=== PATIENT | female | born 1930 | race Caucasian/White ===

== ENCOUNTER 2017-12-18 15:08 | Inpatient (IN) | payer MEDICARE, OTHER ==
[~2017-12-18] VITALS: Ht 170.2 cm; Wt 63.0 kg
[2017-12-18] MEDS ORDERED: LIPITOR10 MG PO (15:38)
[2017-12-18] MEDS ORDERED: VITAMIN D1000 UNI1 PO (15:39)
[2017-12-18] MEDS ORDERED: CALCIUM 600 +1 EAC1 PO (15:39)
[2017-12-18] MEDS ORDERED: PROTONIX40 M1 PO (15:40)
[2017-12-18] MEDS ORDERED: MIRALAX17 GM PO (15:42)
[2017-12-18] MEDS ORDERED: ASPIRIN81 M2 PO (15:43)
[2017-12-18] MEDS ORDERED: HYDROCODONE-AP1 EAC6 PO (15:44)
[2017-12-18] MEDS ORDERED: LACTULOSE20 GM/30 M PO (16:29)
[2017-12-18 18:28] VITALS: BP 141/54
--- NOTE | 2017-12-18 18:58 | NUR ---
87 YEAR OLD FEMALE ADMITTED TO ROOM 226 WITH TRAUMA WITH MULTIPLE FRACTURES SECONDARY TO A RECENT FALL. PT WAS ASSISTED FROM WC TO BED WITH MOD ASSIST, WILL NEED A PLATFORM WALKER FOR THERAPY AND TRANSFERS. PT IS A/O X4, VERY PLEASANT AND STATES SHE'S REALLY GLAD TO BE HERE. ADMISSION HISTORY AND ASSESSMENT COMPLETED DOCUMENTED. REHAB PLAN OF CARE AND TEAM MEETINGS EXPLAINED, PT VOICES UNDERSTANDING. FALL PRECAUTIONS AND HOURLY ROUNDING IMPLEMENTED.
[2017-12-18 19:55] VITALS: BP 133/54
--- NOTE | 2017-12-19 03:14 | NUR ---
ASSUMED CARE AT 1930. ADMITTED EARLIER TO ROOM 326 FROM [facility]. NWB TO LT WRIST, WBAT TO RLE. WEARING SPICA SPLINT TO LEFT WRIST, KNEE IMMOBILIZER TO RLE. HAS PREVENTATIVE MIPILEX TO BILAT ANKLES. HAS BRUISING ON LT ARM, RT SHOULDER. HAS SCABS UNDER LEFT EYE, TO LT SHOULDER AND CHIN. HAS OPEN AREA TO RT BUTTOCK, CLEANSED AND MOISTURE BARRIER APPLIED PER REQUEST, COVERED WITH MIPILEX. PICTURES TAKEN. UP WITH MOD LIFTING ASSIST, GAIT BELT. STAND PIVOT. USING [facility] TONIGHT. POSITIONED ON LT SIDE. HAD LARGE BM AT 2230 PER [facility], AND ANOTHER AT 0300 NOW PASSING GAS. HAS HX OF ENEMA AT [facility], AND IS ON LACTULOSE BID UNTIL GOOD BM. MEDICATED FOR PAIN WITH GOOD RESULTS. TAKES PILLS WHOLE WITHOUT DIFF. HOURLY ROUNDS CONTINUE. BED ALARM ON. CALL LITE IN REACH.
[2017-12-19 03:42] LABS: HEMATOCRIT 26.8 % (37.0-47.0); HEMOGLOBIN 9.2 gm/dL (12.0-15.0); MCH 30.2 pg (26.0-34.0); MCHC 34.4 g/dL (28.0-37.0); MCV 87.8 fL (80.0-100.0); MPV 7.1 fl. (7.2-11.1); RBC 3.05 mil/uL (4.20-5.00); RDW-CV 14.3 % (10.5-14.5); WBC 5.8 thou/uL (4.0-11.0)
[2017-12-19 04:14] LABS: CALCIUM 8.3 mg/dL (8.5-10.1); CREATININE 0.7 mg/dL (0.6-1.3); POTASSIUM 4.1 mmol/L (3.5-5.1)
--- NOTE | 2017-12-19 05:43 | NUR ---
SLEPT OFF AND ON. VOIDED AND HAD BMS PER BSC. NEEDS HELP WITH HYGIENE WHILE SHE STEADIES SELF. PREFERS TO LIE ON BACK BECAUSE OF SHOULDER PAIN. LEGS ELEVATED ON PILLOWS, HEELS OFFLOADED. MEDICATED FOR PAIN WITH RELIEF. HOURLY ROUNDS CONTINUE. BED ALARM ON. CALL LITE IN REACH.
[2017-12-19 08:00] VITALS: BP 107/51
--- NOTE | 2017-12-19 12:10 | NUR ---
Nutrition: Pt assessed for new Rehab admit. Admitted with multiple FXs, trauma. Pt was busy with OT at time of visit. Per RN, pt is eating well. Small stage I pressure ulcer on buttock. Wt: 142#. Heart Healthy diet. +BM. No albumin recorded. Increased nutrient needs R/T ulcer AEB chart review. If pt's meal intake decreased to <60% of meals, order Arginaid packets b.i.d. for wound healing. Also, recommend MVI. Mild risk. Will follow weekly.
--- NOTE | 2017-12-19 17:08 | NUR ---
ASSUMMED CARE OF PT AT 0730, PT ALERT AND ORIENTED, TRANSFERS WITH ASSIST OF 1, GB , WALKER CUEING, PT COMPLAINS OF PAIN IN WRIST AND RIGHT LEG, ELEVATED, MEDICATED PER ORDERS, IMMOBILIZER INTACT TO RIGHT LEG, WRIST SPLINT INTACT TO LEFT WRIST, SEVERAL ABRASIONS NOTED, PT REPOSTIONED EVERY 2 HOURS, WAFFLE CUSHION IN CHAIR, Z GUARD APPLIED TO RIGHT BUTTOCK AREA, SMALL BM X 1 THIS SHIFT, VOID PER COMMODE/TOILET, ATE LUNCH IN DININGROOM, PARTICIPATED IN ALL THERAPIES, HOURLY ROUNDING COMPLETED ASSESSMENT COMPLETE, WILL CONTINUE TO MONITOR.
[2017-12-19 20:22] VITALS: BP 121/58
--- NOTE | 2017-12-20 06:34 | NUR ---
PT SLEPT AT INTERVALS DURING THE NIGHT, UP WITH MODERATE ASSIST WITH GB/WALKER TO THE BATHROOM, PRN PAIN MED AT HS AND THIS AM, PLEASANT, STRESS INCONTINENCE OF URINE AND BOWEL THIS AM, SEVERAL BM'S OVERNIGHT, CALL LIGHT IN REACH, BED ALARM ON FOR SAFETY, WILL CONTINUE TO MONITOR
[2017-12-20 09:07] VITALS: BP 99/45
--- NOTE | 2017-12-20 15:33 | NUR ---
SW met with pt to complete initial assessment, introduce self, and SW role. Pt alert, oriented, pleasant. Pt lives home alone in [facility]. Pt dtr Dayna lives nearby. Nearest HH agency is [facility]. Pt might need a RW with platform attachment at dc. Pt has some DME from pt : [facility], wc, elevated toilet. Pt does not have any steps to enter home. Pt says she feels she has a good support system. SW to continue to follow to assist with safe dc planning.
--- NOTE | 2017-12-20 17:33 | NUR ---
ASSUMED CARE AT 0730 PATIENT ALERT/ORIENTED, PAIN MEDS GIVEN REQUESTED, UP WITH ASSIST OF ONE AND PLATFORM WALKER FOR LEFT ARM. RIGHT LE IMMOBILIZER IN PLACE. CALL LIGHT IN REACH, BED/CHAIR ALARMS IN PLACE, HOURLY ROUNDING COMPLETED. TO DINING ROOM FOR MEALS. PARTICIPATED IN ALL THERAPIES TODAY.
[2017-12-20 20:00] VITALS: BP 116/50
--- NOTE | 2017-12-21 05:56 | NUR ---
ASSUMED CARE AT 1920. PT ALERT AND ORIENTED. PLEASANT. S/P RIGHT PATELLA AND LEFT WRIST FRACTURE. NWB LLE WITH SPLINT IN PLACE AND WBAT RLE WITH IMMOBILIZER. TAKES PILLS WHOLE WITHOUT ISSUES. SHE IS A MOD ASSIST WITH GAIT BELT AND PLATFORM WALKER. NEEDS ASSIST WITH LEGS INTO BED. NEEDS ASSIST WITH PERICARES. PAIN MED GIVEN FOR RIGHT LEG PAIN. ZINC CREAM APPLIED TO ABRASION ON BUTTOCK. SLEPT VERY LITTLE. HAS GOTTEN UP EVERY 1-2 HOURS TO VOID. USED CALL LIGHT APPROPRIATELY. BED ALARM ON.
[2017-12-21 07:59] VITALS: BP 112/44
--- NOTE | 2017-12-21 17:32 | NUR ---
ASSUMED CARE OF PATIENT AT 0720. ALERT AND ORIENTED X4. ASSESSMENT COMPLETED AND CHARTED. VSS ON ROOM AIR. PATIENT IS UP WITH GAIR BELT AND PLATFORM WALKER, NWB ON RUE, WBAT ON LLE. PATIENT WORKED WELL WITH THERAPIES TODAY AND HAD MINIMAL COMPLAINTS OF PAIN. CAME TO THE DINING ROOM FOR LUNCH AND DINNER TODAY. HOURLY ROUNDS MAINTAINED, CALL LIGHT PLACED WITHIN REACH. NURSING WILL CONTINUE TO MONITOR.
[2017-12-21 20:00] VITALS: BP 121/53
[2017-12-21 21:01] LABS: URINE BILIRUBIN NEGATIVE (Negative); URINE BLOOD NEGATIVE (Negative); URINE CLARITY CLEAR; URINE COLOR YELLOW; URINE GLUCOSE-RANDOM NEGATIVE (Negative); URINE KETONES NEGATIVE (Negative); URINE LEUKOCYTES-REFLEX TRACE (Negative); URINE NITRITE-REFLEX NEGATIVE (Negative); URINE PROTEIN NEGATIVE (Negative); URINE SPECIFIC GRAVITY 1.015 (1.005-1.030); URINE UROBILINOGEN 0.2 E.U./dl (0.2-1.0)
[2017-12-21 21:16] LABS: SQUAMOUS 4-10 Moderate /LPF (0-3)
[2017-12-21 21:17] LABS: BACTERIA-REFLEX 1-9 Few /HPF (None Seen); CRYSTALS None Seen /LPF (None Seen); HYALINE CASTS 4-10 Moderate /LPF (None Seen); URINE RBC 0-2 Rare /HPF (0-2); URINE WBC-REFLEX 0-5 Rare /HPF (0-5)
--- NOTE | 2017-12-22 04:56 | NUR ---
ASSUMED CARES AT 1915. PT ALERT AND ORIENTED. PLEASANT. C/O PAIN TO BACK AND RIGHT LEG. NORCO GIVEN. SHE IS A MOD ASSIST WITH GAIT BELT AND PLATFORM WALKER. UP TO BATHROOM. NEEDS ASSIST WITH CARES. NURSING ASSIST WITH LEGS INTO BED. ZINC CREAM APPLIED TO ABRASION TO RIGHT BUTTOCK. UP SEVERAL TIMES DURING THE NIGHT TO VOID. SLEPT OFF AND ON. CALL LIGHT IN REACH AND BED ALARM ON.
[2017-12-22 07:55] VITALS: BP 106/42
--- NOTE | 2017-12-22 16:08 | NUR ---
PT PROGRESSING TOWARDS GOALS THIS SHIFT. ABLE TO WALK TO DINING ROOM FOR MEALS WITH WALKER, GAIT BELT, AND STB ASSIST X1. PT NEEDS MINIMAL ASSIST OPENING CONTAINERS AT MEALS AND IS ABLE TO FEED SELF INDEPENDENTLY. PT REQUIRED MODERATE ASSIST DRESSING UPPER BODY BUT WAS DEPENDENT DRESSING LOWER BODY. PT COMPLETED GROOMING INDEPENDENTLY. VSS. FALL PRECAUTIONS IN PLACE.
[2017-12-22 19:30] VITALS: BP 112/53
--- NOTE | 2017-12-23 05:34 | NUR ---
ASSUMED CARES AT 1915. PT ALERT AND ORIENTED. PLEASANT. C/O PAIN TO BACK/RIGHT LEG. NORCO GIVEN. HAS IMMOBILIZER TO RLE AND SPLINT TO LEFT FOREARM. SHE IS A MOD ASSIST WITH GAIT BELT AND PLATFORM WALKER. UP TO THE BATHROOM. NEEDS ASSIST WITH CARES AND DRESSING. PT WILL ONLY OCCASIONALLY TURN IN BED SHE HAS MUCH PAIN TO RIGHT LEG WHEN LAYING ONTO SIDES. DID NOT GET UP FREQUENTLY TO VOID PREVIOUS NIGHTS. SLEPT OFF AND ON. PT USED CALL LIGHT APPROPRIATELY. BED ALARM ON.
[2017-12-23 07:31] VITALS: BP 125/50
--- NOTE | 2017-12-23 12:21 | NUR ---
WOUND NURSE: PATIENT SEEN FOR WOUND ASSESSMENT REQUESTED BY STAFF NURSE CARING FOR PATIENT. PATIEHT WITH HEALING LINEAR SKIN TEAR ALONG THE MEDIAL EDGE OF LEFT HAND AND AT THE BEND OF THE LEFT THUMB. CLEANSED EACH LESION WITH WOUND CLEANSER AND GAUZE THEN APPLIED PURACHOL PLUS AG UNDER FOAM, THEN WRAPPED WITH CONFORM AND SECURED WITH TAPE. DRESSING TO BE CHANGED 2X/WEEK AND NEEDED. PATIENT ALSO HAS SKIN LESION ON RIGHT BUTTOCK AND WHICH IS NOT OPEN, BUT PRESENTS A SILVER DOLLAR SIZED AREA OF SLIGHTLY DARKER REDNESS, BUT IS BLANCHEABLE. THERE IS NO WARMTH, INDURATION, OR PAIN. THE AFFECTED AREA IS PROTECTED WITH MOISTURE BARRIER. PATIENT INSTRUCTED ON MEASURES TO PROMOTE HEALING AND PREVENT FURTHER INJURY WITH GOOD UNDERSTANDING ACHIEVED.
--- NOTE | 2017-12-23 16:04 | NUR ---
pt calls for assist to ambulate to bathroom with gaitbelt, platform walker and min assist of 1. pt is nwb to rt.arm and wears long leg brace to rt. knee. pt remains continent of b+b and is able to cleanse self with a little assist pulling up pants over lt hip. wound nurse has seen wounds today and made reccomendations, and done dressings.pt has splint for lt arm.pt is alert and orientated and progresses towards goals and hourly rounding continues.
[2017-12-23 19:59] VITALS: BP 156/45
--- NOTE | 2017-12-24 05:29 | NUR ---
ASSUMED CARES AT 1915. PT ALERT AND ORIENTED. PLEASANT. TAKES PILLS WHOLE WITHOUT ISSUES. NORCO GIVEN FOR BACK PAIN. SPLINT TO LEFT FOREARM. IMMOBILIZER TO RIGHT LEG. SHE IS A MOD ASSIST WITH GAIT BELT AND WALKER. NEEDS LIFTING ASSIST FROM SIT TO STAND. NURSING ASSISTS WITH CARES AND DRESSING. ZINC ARACELIS APPLIED TO AREA ON RIGHT BUTTOCK. DRESSINGS TO LEFT HAND INTACT. UP SEVERAL TIMES DURING THE NIGHT TO VOID. SLEPT OFF AND ON. CALL LIGHT IN REACH AND BED ALARM ON.
[2017-12-24 07:49] VITALS: BP 116/49
--- NOTE | 2017-12-24 14:20 | NUR ---
NATASHA called pt dtr Nita at [phone] in preparation for team conference. NATASHA explained team conference is on Saturday and SW contacting family in case family has any questions or comments that they would want SW to present to the team on their behalf. Pt dtr said she felt pt was doing really well and the only thing pt dtr wondered at the moment was in regards to pt length of stay. NATASHA said that SW will contact pt dtr after team conference to review team conference summary. NATASHA provided pt dtr SW number to follow up if needed. SW to continue to follow.
--- NOTE | 2017-12-24 16:25 | NUR ---
PT HAS PARTICIPATED WITH THERAPIES AND RESTS IN BED NOW. PT CALLS FOR ASSIST TO BATHROOM WITH PLATFORM WALKER,GAITBELT AND MIN ASSIST OF 1. PT NEEDS ASSIST TO COME TO STANDING AND WEARS RT.LEG BRACE AND LT ARM SPLINT AND IS NWB TO LT ARM. PT CONTINENT OF B+B WITH NO BM TODAY AND REPORTS VOIDING WELL. PRN FOR PAIN GIVEN X2 TODAY WITH GOOD EFFECT. PT IS ALERT AND ORIENTATED. PT EATS MEALS IN DINNINGROOM. PT CONTINUES TO PROGRESS TOWARDS GOALS AND HOURLY ROUNDING CONTINUES.
[2017-12-24 19:15] VITALS: BP 125/46
--- NOTE | 2017-12-24 19:15 | NUR ---
SITTING UP IN RECLINER WITH LEGS ELEVATED VISITING WITH 3 VISITORS. STATES PAIN LEVEL AT A "2" AND WANTS TO TAKE A PAIN PILL AT BEDTIME.
--- NOTE | 2017-12-25 05:12 | NUR ---
UP EVERY ONE AND A HALF TO TWO HOURS TO THE TOILET TO VOID. AMBULATES WITH SBA, GAITBELT, PLATFORM WALKER. NEEDS LIFTING ASSIST TO GET FROM SITTING TO STANDING AND LIFTING ASSIST WITH BOTH LEGS TO GET INTO BED. STARTS TO URINATE BEFORE IS SEATED ON THE TOILET RISER. VOIDED IN BRIEFS AND ON THE FLOOR X 2 BEFORE SITTING DOWN ON THE TOILET. TOOK MEDS WHOLE WITH WATER. PAIN MED GIVEN AT 2115 AND 0103 FOR C/O BACK AND RIGHT LEG PAIN WITH RELIEF.
[2017-12-25 07:36] VITALS: BP 112/47
--- NOTE | 2017-12-25 13:24 | NUR ---
NATASHA and Dr Jacobsen reviewed team conference summary with pt. Plan for team to reassess pt length of stay during team conference next Monday 01/01. Pt in agreement with plan and was encouraged by her progress in therapies thus far. SW to continue to follow to assist with safe dc planning.
--- NOTE | 2017-12-25 18:46 | NUR ---
ASSUMED CARE AT 0730 PATIENT ALERT/ORIENTED, PAIN MEDS GIVEN X1 THIS SHIFT WITH GOOD RELIEF, UP WITH ASSIST OF ONE/GAIT BELT AND WALKER. PARTICIPATED IN ALL THERAPIES TODAY, TO DINING ROOM FOR MEALS. HOURLY ROUNDING COMPLETED, BED/CHAIR ALARMS IN PLACE, CALL LIGHT IN REACH.
[2017-12-25 19:30] VITALS: BP 111/48
--- NOTE | 2017-12-25 21:15 | NUR ---
SITTING UP IN RECLINER WITH LEGS ELEVATED SLEEPING. AWAKENED FOR HS REASSESSMENT AND MED PASS. TOOK MEDS WHOLE ONE AT A TIME WITH WATER.
--- NOTE | 2017-12-26 05:31 | NUR ---
RESTED ON/OFF. UP TO THE TOILET SEVERAL TIMES DURING THE NIGHT TO VOID. IMPROVING ON GETTING FROM SITTING TO STANDING POSITION - REQUIRING LESS LIFTING ASSISTANCE. TAKES MEDS WHOLE ONE AT A TIME WITH WATER. HOURLY ROUNDING IN PROGRESS.
[2017-12-26 08:00] VITALS: BP 131/52
--- NOTE | 2017-12-26 09:18 | NUR ---
NATASHA called pt dtr Nita to follow up and review team conference summary. Nita did not answer so NATASHA left a detailed message stating plan is to reassess pt length of stay during team conference next Saturday and requested call back if pt dtr had any questions or concerns. SW to continue to follow to assist with safe dc planning.
--- NOTE | 2017-12-26 19:20 | NUR ---
ASSUMED CARE AT 0730 PATIENT ALERT/ORIENTED, PAIN MEDS GIVEN X 1 THIS SHIFT, UP WITH ASSIST OF ONE AND WALKER/GAIT BELT. BED/CHAIR ALARMS IN PLACE, HOURLY ROUNDING COMPLETED, PARTICIPATED IN ALL THERAPIES TO DINING ROOM FOR MEALS. CALL LIGHT IN REACH
[2017-12-26 20:00] VITALS: BP 114/45
--- NOTE | 2017-12-27 05:06 | NUR ---
ASSUMED CARES AT 1920. PT ALERT AND ORIENTED. PLEASANT. TAKES PILLS WHOLE WITHOUT ISSUES. NORCO GIVEN FOR RT KNEE PAIN. SHE IS A MIN ASSIST WITH GAIT BELT AND WALKER. UP TO BATHROOM FEW TIMES DURING THE NIGHT. WEARS PULLUPS. Z GUARD CREAM APPLIED TO REDDENED AREA ON RIGHT BUTTOCK. PT SLEPT OFF AND ON. LEGS UP ONTO PILLOW. PT CALLS WHEN SHE WANTS TO BE TURNED. CALL LIGHT IN REACH AND BED ALARM ON.
[2017-12-27 08:00] VITALS: BP 130/61
--- NOTE | 2017-12-27 17:14 | NUR ---
PT CALLS FOR ASSIST TO BATHROOM AND AMBULATES WITH STEADY GAIT AND BRACE TO RT. LEG. PT REMAINS NWB TO LT LOWER ARM AND DRESSING OF LACERATIONS CHANGED TODAY WITH HEALING NOTED AND OPEN SPLINT WORN. PT CALLS FOR ASSIST TO BATHROOM AND VOIDS WELL AND ABLE TO CLEANSE SELF AND ADJUST CLOTHING WITH SBA FOR STEADING. PRN FOR PAIN GIVEN THIS AFTERNOON WITH GOOD EFFECT. PT KEEPS RT. LEG ELEVATED WHEN IN RECLINER AND LT ARM ON PILLOW. PT REMAINS ALERT AND ORIENTATED AND PROGRESSES TOWARDS GOALS.
[2017-12-27 20:00] VITALS: BP 132/56
--- NOTE | 2017-12-28 04:59 | NUR ---
ASSUMED CARE AT 1930. PATIENT RESTING IN RECLINER UNTIL AROUND 2100. UP WITH MIN ASSIST, GAIT BELT, PLATFORM WALKER. VOIDS PER TOILET. WEARS BRIEF, INCONTINENT OF URINE EACH TIME SHE HAS SLEPT VERY WELL TONIGHT. NWB LT WRIST, WBAT RT LEG. DRESSING TO LT WRIST C/D/I. Z CREAM APPLIED TO BUTTOCKS EACH VOIDING. AREAS OF BRUISING IMPROVING SINCE ADMISSION. SCABS TO LT CHEEK, CHIN AND LT SHOULDER IMPROVING. STERISTRIPS INTACT TO LT CHEEK. TAKES PILLS WHOLE WITH WATER WITHOUT DIFF. ASSISTED WITH TURNS. HOURLY ROUNDS CONTINUE. BED ALARM ON. CALL LITE IN REACH.
[2017-12-28 08:08] VITALS: BP 128/56
--- NOTE | 2017-12-28 17:55 | NUR ---
ASSUMED CARE AT 0730 PATIENT ALERT/ORIENTED, NO COMPLAINTS OF PAIN THIS SHIFT, UP WITH STANDBY ASSIST AND WALKER/GAIT BELT. BED/CHAIR ALARMS IN PLACE, CALL LIGHT IN REACH, HOURLY ROUNDING COMPLETED. PARTICIPATED IN ALL THERAPIES TODAY, TO DINING ROOM FOR MEALS.
[2017-12-28 20:00] VITALS: BP 122/67
--- NOTE | 2017-12-29 01:43 | NUR ---
ASSUMED CARE AT 1930. RESTING IN RECLINER UNTIL AROUND 2100 WITH LEGS ELEVATED. UP WITH SBA, GAIT BELT, PLATFORM WALKER. SBA TO MIN ASSIST WITH RISING. VOIDS PER TOILET. DOES OWN HYGIENE. NBW TO LT WRIST, WBAT TO RLE. LT SPICA WRIST BRACE AND DRESSINGS INTACT. RT KNEE IMMOBILIZER INTACT. TAKES PILLS WHOLE WITH WATER. WEARS PULLUPS, IS INCONTINENT OF URINE EACH TIME. HOURLY ROUNDS CONTINUE. BED ALARM ON. CALL LITE IN REACH.
--- NOTE | 2017-12-29 06:07 | NUR ---
SLEPT MOST OF THE NIGHT EXCEPT TO VOID. ASSISTED WITH TURNS. LT ARM SUPPORTED WITH PILLOW. RLE ON PILLOWS. BOTH HEELS OFFLOADED. HOURLY ROUNDS CONTINUE. CALL LITE IN REACH. BED ALARM ON.
[2017-12-29 07:10] VITALS: BP 119/47
--- NOTE | 2017-12-29 18:03 | NUR ---
ASSUMED CARE AT 0730 PATIENT ALERT/ORIENTED, NO COMPLAINTS OF PAIN THIS SHIFT, UP WITH ONE AND WALKER, BED/CHAIR ALARMS IN PLACE, CALL LIGHT IN REACH, HOURLY ROUNDING COMPLETED, TO DINING ROOM FOR MEALS. DID NOT HAVE THE PURACHOL PLUS AG DRESSING FOR LEFT HAND TODAY, AFTER TAKING PICTURES USED MEPILEX AG AND WRAPPED WITH GAUZE, LEFT MESSAGE FOR WOUND NURSE TO SUPPLY US WITH MORE DRESSINGS.
[2017-12-29 20:11] VITALS: BP 128/57
--- NOTE | 2017-12-30 00:04 | NUR ---
ASSUMED CARE AT 1930. PATIENT RESTED IN RECLINER UNTIL AROUND 2099. NBW TO LT WRIST, WBAT TO RLE. UP WITH MOD TO MIN LIFTING, GAIT BELT, PLATFORM WALKER. LT WRIST SPICA SPLINT C/D/I. DRESSINGS C/D/I. RT KNEE IMMOBILIZER INTACT. TAKES PILLS WHOLE WITH WATER. SCABS TO LT CHEEK, SHOULDER AND CHIN INTACT. TURNS SELF. SPOT ON BUTTOCKS NEARLY HEALED, MOISTURE BARRIER APPLIED. HOURLY ROUNDS CONTINUE. BED ALARM ON. CALL LITE IN REACH.
--- NOTE | 2017-12-30 05:15 | NUR ---
C/O COLD SYMPTOMS, NASAL STUFFINESS, RUNNY NOSE AND SORE THROAT. OCCASIONAL COUGH NOTED. FLUIDS ENCOURAGED. WILL PASS THIS ONTO DAY SHIFT.
--- NOTE | 2017-12-30 06:20 | NUR ---
SLEPT EXCEPT WHEN WOKE UP TO VOID. VOIDS PER TOILET. ASSISTED WITH TURNS, POSITIONED WITH PILLOWS. LEGS ELEVATED AND HEELS OFFLOADED.
[2017-12-30 08:04] VITALS: BP 104/53
--- NOTE | 2017-12-30 16:32 | NUR ---
PT CALLS FOR ASSIST TO BATHROOM AND AMBULATES WITH WALKER, GAITBELT AND MIN ASSIST OF 1. PRN PLAIN TYLENOL GIVEN THIS AM FOR GENERALIZED ACHES WITH GOOD EFFECT. PT HAS RUNNY NOSE AND SINUS DRAINAGE TODAY AND IS TO START ON CLARITIN AND NASAL SPRAY. PT GOES TO DINNINGROOM FOR MEALS AND CALLS TO DIETARY TO CHANGE MENUE WANTED. PT CONTINENT OF B+B WITH NO BM TODAY. PT CONTINUES TO PROGRESS TOWARDS GOALS AND IS ALERT AND ORIENTATED. HOURLY ROUNDING CONTINUES.
[2017-12-30 20:14] VITALS: BP 112/52
[2017-12-31 04:06] LABS: HEMATOCRIT 25.7 % (37.0-47.0); HEMOGLOBIN 8.6 gm/dL (12.0-15.0); MCH 29.5 pg (26.0-34.0); MCHC 33.5 g/dL (28.0-37.0); MPV 7.7 fl. (7.2-11.1); RBC 2.93 mil/uL (4.20-5.00); RDW-CV 14.3 % (10.5-14.5); WBC 2.9 thou/uL (4.0-11.0)
[2017-12-31 04:26] LABS: CALCIUM 8.7 mg/dL (8.5-10.1); CREATININE 0.7 mg/dL (0.6-1.3); MAGNESIUM 1.9 mg/dL (1.8-2.4); POTASSIUM 3.6 mmol/L (3.5-5.1)
--- NOTE | 2017-12-31 05:00 | NUR ---
ASSUMED CARES AT 1920. PT ALERT AND ORIENTED. PLEASANT. LEFT FOREARM SPLINT AND RLE IMMOBILIZER IN PLACE. C/O PAIN TO RIGHT LEG. NORCO GIVEN. TAKES PILLS WHOLE WITHOUT ISSUES. SHE IS A MIN ASSIST WITH GAIT BELT AND WALKER. UP TO BATHROOM. DOES OWN CARE. SLEPT OFF AND ON. NO OTHER ISSUES. CALL LIGHT IN REACH AND BED ALARM ON.
[2017-12-31 07:50] VITALS: BP 122/50
--- NOTE | 2017-12-31 16:36 | NUR ---
PT AMBULATES WITH WALKER,GAITBELT AND ASSIST OF 1 TO BATHROOM AND DINNINGROOM.DRESSING TO LT WRIST AND THUMB CHANGED TODAY AFTER SHOWER WITH AREAS SCABBED,HEALING AND INTACT. STERISTRIPS TO AREA BELOW LT EYE REMOVED WITH SKIN HEALED. LT SHOULDER SKIN ALSO HEALED. PT HAS COLD SYMPTOMS WITH CLARITIN AND MUCINEX GIVEN. PT REMAINS CONTINENT OF B+B. PT PROGRESSES TOWARDS GOALS AND HOURLY ROUNDING CONTINUES
[2017-12-31 19:30] VITALS: BP 120/91
--- NOTE | 2018-01-01 05:00 | NUR ---
ASSUMED CARES AT 1920. PT ALERT AND ORIENTED X 4. PLEASANT. DENIED ANY NEED FOR PAIN MED. DOES HAVE SINUS CONGESTION. PT SAYS THAT IS COUGHING UP MUCOUS. DRESSINGS TO LEFT HAND ARE INTACT. OTHER SCABBED AREAS ARE HEALING. SHE IS A MIN ASSIST GAIT BELT AND PLATFORM WALKER. UP TO BATHROOM. DOES OWN CARE. SLEPT OFF AND ON. NO OTHER COMPLAINTS. CALL LIGHT IN REACH AND BED ALARM ON.
[2018-01-01 07:52] VITALS: BP 136/71
--- NOTE | 2018-01-01 16:24 | NUR ---
ASSUMED CARE AT 0730 PATIENT ALERT/ORIENTED, PAIN MED GIVEN X 1 THIS SHIFT WITH GOOD RELIEF, UP WITH ASSIST OF ONE AND WALKER/GAIT BELT. HOURLY ROUNDING COMPLETED, TO DINING ROOM FOR MEALS, BED/CHAIR ALARMS IN PLACE, CALL LIGHT IN REACH.PARTICIPATED IN ALL THERAPIES TODAY.
--- NOTE | 2018-01-01 16:38 | NUR ---
NATASHA and Dr Jacobsen met with pt to review team conference summary. Plan for pt to remain on rehab unit another week and for team to reteam with possible dc date of next Monday 01/08. Pt was okay with plan. SW to continue to follow to discuss with family and to assist with safe dc planning.
[2018-01-01 20:00] VITALS: BP 123/46
--- NOTE | 2018-01-02 05:25 | NUR ---
ASSUMED CARES AT 1920. PT ALERT AND ORIENTED. PLEASANT. C/O LEG PAIN. TYLENOL GIVEN. PT SAYS THAT COUGH/CONGESTION LITTLE BETTER. TAKES PILLS WHOLE WITHOUT ISSUES. SHE IS A MIN ASSIST WITH GAIT BELT AND WALKER. UP TO BATHROOM. DOES OWN CARES. WEARS PULLUPS FOR DRIBBLING. PT WAS ASSISTED WITH TURNS WHEN REQUESTED. SLEPT OTHERWISE. CALL LIGHT IN REACH. BED ALARM ON.
[2018-01-02 08:09] VITALS: BP 124/57
--- NOTE | 2018-01-02 10:35 | NUR ---
SW met with pt to follow up on safe dc planning. SW mentioned team's recommendation for pt to have assistance/supervision at dc and pt is open to in home assistance, HH services, and someone to stay with her to provide more support. SW mentioned [facility] and how maybe they offer private duty care in addition to HH or other private duty care services. SW called pt dtr at [phone] and discussed pt dc plan and pt dtr said that she will stay with pt at dc at least a couple of days. SW mentioned Meals on Wheels and private duty care resources to pt dtr. SW to continue to follow to assist with safe dc planning; SW to follow to arrange order for rolling walker at dc if needed. dc
--- NOTE | 2018-01-02 16:05 | NUR ---
PT CALLS FOR ASSIST UP TO BATHROOM AND RECLINER AND AMBULATES WITH SBA, WALKER AND GAITBELT WITH ASSIST OF 1. PRN FOR LT WRIST AND RT. LEG PAIN GIVEN WITH GOOD EFFECT,PL.TYLENOL.PT CONTINENT OF B+B AND GOES TO BATHROOM WITH ASSIST.PT AMBULATES TO DINNINGROOM FOR MEALS AND HAS GOOD APPETITE. PT CONTINUES TO HAVE AM BRONCHIAL CONGESTION WITH CLARITIN AND MUCINEX GIVEN WITH GOOD EFFECT.PT CONTINUES TO PROGRESS TOWARDS GOALS AND HOURLY ROUNDING CONTINUES.
[2018-01-02 19:25] VITALS: BP 125/52
--- NOTE | 2018-01-02 23:58 | NUR ---
ASSUMED CARE AT 1930. PATIENT RESTING IN RECLINER. UP WITH MIN ASSIST OUT OF RECLINER, DOES BETTER WITH RISING FROM TOILET OR BED. GAIT BELT, PLATFORM WALKER. VOIDS PER TOILET, WEARS PULLUPS. DRESSING AND SPICA SPLINT TO LT WRIST C/D/I. LT HAND PUFFY, ENCOURAGED TO ELEVATED WHEN POSSIBLE. KNEE IMMOBILIZER TO RLE INTACT. SCABS HEALED. BRUISING IMPROVED. TOOK MUCINEX D AT HS FOR NASAL CONGESTION. NO C/O PAIN. HOURLY ROUNDS CONTINUE. BED ALARM ON, CALL LITE IN REACH.
--- NOTE | 2018-01-03 05:52 | NUR ---
SLEPT MOST OF THE NIGHT EXCEPT TO VOID. ASSISTED WITH TURNS. NO C/O PAIN. HOURLY ROUNDS CONTINUE, BED ALARM ON. CALL LITE IN REACH.
[2018-01-03 08:00] VITALS: BP 133/59
--- NOTE | 2018-01-03 18:48 | NUR ---
ASSUMED CARE AT 0730 PATIENT ALERT/ORIENTED, NO COMPLAINTS OF PAIN THIS SHIFT, MYLANTA GIVEN THIS AFTERNOON FOR INDIGESTION. UP WITH ASSIST OF ONE GAIT BELT AND WALKER, TO DINING ROOM FOR MEALS. BED/CHAIR ALARM IN PLACE, CALL LIGHT IN REACH. PARTICIPATED IN ALL THERAPIES TODAY. HOURLY ROUNDING COMPLETED.
--- NOTE | 2018-01-03 18:53 | NUR ---
ASSUMED CARE AT 0730. PATIENT ALERT/ORIENTED, PAIN MEDS GIVEN THIS SHIFT X1 WITH GOOD RELIEF, UP WITH WALKER, GAIT BELT. IMMOBILIZER TO RIGHT LEG, HAND SPLINT TO LEFT HAND INTACT. HOURLY ROUNDING COMPLETED, BED/CHAIR ALARMS IN PLACE, CALL LIGHT IN REACH, PARTICIPATED IN ALL THERAPIES TODAY TO DINING ROOM FOR MEALS
[2018-01-03 20:00] VITALS: BP 114/48
--- NOTE | 2018-01-04 00:52 | NUR ---
ASSUMED CARE @ 1932-01/03-SAT.SITS IN RECLINER W/ LE'S UP WATCHING TV.SPLINT IN PLACE LEFT WRIST.IMMOBILIZER IN PLACE RIGHT KNEE.LUE ELEVATED ON 2 PILLOWS WHILE IN RECLINER.EDEMA-LEFT FINGERS PRESENT.CHAIR ALARM PUT ON @ 1934.PRN GUIAFENESIN TAB GIVEN @ 2045-PER PT'S REQUEST.NWB LEFT UE OBSERVED.HEELS OFF BED WHEN IN BED.BED ALARM PUT ON @ 2199.SEE POSITION CHANGE CHARTING BY LOSS PREVENTION AND SAFETY MANAGER. ON HOURLY ROUNDS.LOSS PREVENTION AND SAFETY MANAGER DOING ODD HOUR ROUNDS.
--- NOTE | 2018-01-04 05:07 | NUR ---
SLEPT LATE & SLEEPING SINCE -01/04-SAT.REFUSED HS SNACK.BRP X2 W/ ASSIST. WET BRIEF X1 BEFORE SAT DOWN IN TOILET.
[2018-01-04 07:49] VITALS: BP 140/56
[2018-01-04 20:00] VITALS: BP 126/51
--- NOTE | 2018-01-05 00:26 | NUR ---
ASSUMED CARE @ 1914-01/04-SAT.SITS IN RECLINER W/ LE'S UP.DAUGHTER VISITING @ THIS TIME.SPLINT IN PLACE LEFT WRIST.IMMOBILIZER IN PLACE RIGHT KNEE.PRN GUIAFENESIN TABLET-ONE TAB ORAL GIVEN @ 2014-PER PT'S REQUEST.CHAIR ALARM ALREADY ON @ 1914.NWB LUE OBSERVED.EACH LE UP ON A PILLOW IN BED.BED ALARM PUT ON @ 2199.WANTS ALL LIGHTS OFF & DOOR CLOSED @ NIGHT.LUE UP ON A PILLOW ALSO. TO BED LATE @ 2199.STILL AWAKE @ -01/05-SUN.WANTS SLEEPING MED.PRN AMBIEN 5 MG ORAL GIVEN @ 0004.ON HOURLY ROUNDS.SWITCHBOARD WIRE WORKER HELPER DOING ODD HOUR ROUNDS.
--- NOTE | 2018-01-05 05:18 | NUR ---
SLEEPING SINCE 44 AFTER SLEEPING MED GIVEN @ 0004.BRP X3.REFUSED HS SNACK.SEE POSITION CHANGE CHARTING BY COMMODITIES CLERK.WEARS BRIEF.
[2018-01-05 08:00] VITALS: BP 126/51
--- NOTE | 2018-01-05 17:52 | NUR ---
AM ASSESSMENT AND VITAL SIGNS COMPLETED DOCUMENTED. DRESSING CHANGES AND WOUND PHOTOS DONE TODAY. PT HAS HAD NO COMPLAINTS OF PAIN OR DISCOMFORT. FALL PRECAUTIONS AND HOURLY ROUNDING CONTINUE.
[2018-01-05 19:55] VITALS: BP 125/50
--- NOTE | 2018-01-06 00:29 | NUR ---
ASSUMED CARE @ 1919-01/05-SUN.SITS IN RECLINER W/ LE'S UP & LEFT HAND ELEVATED ON A PILLOW.WATCHING TV.SPLINT IN PLACE LEFT WRIST.IMMOBILIZER IN PLACE RIGHT LE.CHAIR ALARM PUT ON @ 1919.TEMP @ 1954-99.0-ORAL.TEMP RE-CHECKED @ 2149- 98.3 ORAL.EDEMA-LEFT FINGERS.WEARS BRIEF.PRN GUIAFENESSIN ONE TAB ORAL GIVEN @ 2005-PER PT'S REQUEST.SEE PAIN Management @ 2214.SLEEPING IN RECLINER @ 2199.AWAKENED BY AMPLIFIER MECHANIC TO GO TO BED.HOB UP.LEFT UE ELEVATED.EACH LE ELEVATED ON A PILLOW.BED ALARM PUT ON @ 2199.ON HOURLY ROUNDS.AMPLIFIER MECHANIC DOING ODD HOUR ROUNDS.
--- NOTE | 2018-01-06 05:22 | NUR ---
REFUSED HS SNACK.SLEEPING SINCE 2199.BRP W/ SBA X3.SEE BOND WRITER'S POSITION CHANGE CHARTING.MOD BM @ 3447.
[2018-01-06 08:00] VITALS: BP 137/63
--- NOTE | 2018-01-06 14:39 | NUR ---
NATASHA called and spoke with Lauryn at [facility] who approved order for standard front wheeled rolling walker with L Platfrom attachment. NATASHA faxed order and Lauryn said that walker could be issued and that there should also be a platform in the closet. [facility] to be arranged; initial information faxed today and orders to be faxed on Saturday. Team will reteam with Tentative dc plan for pt to dc home with family assist on Monday 01/08. SW to continue to follow.
--- NOTE | 2018-01-06 16:18 | NUR ---
ASSUMMED CARE OF PT [id number], PT ALERT AND ORIENTED, PT TRANSFERS WITH MIN ASSIST, GB WALKER, IMMOBILIZER INTACT TO RIGHT LEG AND SPLINT INTACT TO LEFT ARM, LACERATIONS TO LEFT HAND HEALING, CLEANSED AND DRESSINGS APPLIED, PT DENIED NEED FOR PAIN MEDICATION, TAKING FOOD AND FLUIDS WELL, PARTICIPATED IN ALL THERAPIES, HOURLY ROUNDING COMPLETED, ASSESSMENT COMPLETE, WILL CONTINUE TO MONITOR.
[2018-01-06 20:27] VITALS: BP 114/54
--- NOTE | 2018-01-06 22:49 | NUR ---
ASSUMED CARE AT 1930. PATIENT RESTING IN RECLINER WITH LEGS ELEVATED AND HEELS OFFLOADED. WENT TO BED AROUND 2200. UP WITH MIN LIFTING TO RISE, GAIT BELT, PLATFORM WALKER. VOIDS PER TOILET, WEARS PULLUPS. TAKES PILLS WHOLE WITH WATER. RT KNEE IMMOBILIZER, LT WRIST SPICA SPLINT INTACT. DRESSINGS TO LT WRIST C/D/I. NWB TO LT WRIST, WBAT TO RLE. AFEBRILE. ALL PRIOR SCABS HEALED EXCEPT ONE SMALL AREA NEAR LEFT EYEBROW. DENIES PAIN. HOURLY ROUNDS CONTINUE. ALARMS FOR SAFETY, CALL LITE IN REACH.
--- NOTE | 2018-01-07 05:47 | NUR ---
SLEPT MOST OF THE NIGHT EXCEPT TO VOID. VOIDS PER TOILET. NO C/O PAIN. HOURLY ROUNDS CONTINUE. BED ALARM ON. CALL LITE IN REACH.
[2018-01-07 08:09] VITALS: BP 125/56
--- NOTE | 2018-01-07 13:41 | NUR ---
SW received call from pt dtr Nita who discussed pt was informed by therapy that pt may not dc home tomorrow but tentatively Saturday and team would discuss in team meeting on Saturday. SW discussed not certain whether a dc plan was finalized yet but SW would discuss with team/therapy and pt and update pt dtr as needed. Team is recommending reteam with pt to have a couple more days of therapy with tentative dc Saturday; SW informed pt and pt dtr who were understanding and said that they can plan accordingly. Pt dtr did not have any other questions or concerns in preparation for team conference. SW to continue to follow to assist with safe dc planning...Loi FERNANDEZ and NAY with platform to be issued prior to pt dc home with pt dtr support.
--- NOTE | 2018-01-07 16:39 | NUR ---
ASSUMMED CARE OF PT AT 0730, PT ALERT AND ORIENTED, PT TRANSFERS WITH SBA, GB AND WALKER, AMBULATES TO DININGROOM FOR MEALS, DENIES PAIN, IMMOBILIZER TO RIGHT LEG, WRIST SPLINT INTACT, AMBULATES TO BATHROOM TO VOID, PARTICIPATED IN ALL THERAPIES, HOURLY ROUNDING COMPLETED, ASSESSMENT COMPLETE, WILL CONTINUE TO MONITOR.
[2018-01-07 19:49] VITALS: BP 116/49
--- NOTE | 2018-01-08 05:09 | NUR ---
ASSUMED CARES AT 1920. PT ALERT AND ORIENTED. PLEASANT. DENIED ANY NEED FOR PAIN MED. TOOK PILLS WHOLE WITHOUT ISSUES. MIN ASSIST WITH GAIT BELT AND WALKER. UP TO BATHROOM FEW TIMES DURING THE NIGHT. DOES OWN CARES. SLEPT WELL OTHERWISE. CALL LIGHT IN REACH AND BED ALARM ON.
[2018-01-08 07:58] VITALS: BP 122/54
--- NOTE | 2018-01-08 11:11 | NUR ---
WOUND CARE NOTE: REASSESSMENT OF WOUNDS TO LEFT HAND. LACERATION TO THE MEDIAL LEFT HAND HAS HEALED, NEW PINK EPITHELIUM PRESENT. SMALL SCABS NOTED PROXIMALLY, BUT ARE DRY AND FLAKING OFF. NO S/S OF INFECTION. APPLIED LOTION TO AREA TO ASSIST WITH ELASTICITY. LACERATION TO LEFT THUMB IS MACERATED. BELIEVE THIS IS DUE TO HER BRACE AND PLASTIC BANDAID THAT IS COVERING THE AREA. CLEANSED WITH WOUND CLEANSER, DRIED DRAINAGE NOTED TO REJI-WOUND. SCANT AMOUNT OF SEROUS DRAINAGE NOTED. ATTEMPTED A COUPLE OF DIFFERENT DRESSINGS, BUT WOULD NOT ALLOW PATIENT TO FIT HER THUMB BACK INTO THE BRACE. FINALLY OPTED FOR [employer] SECURED WITH A BANDAID IN HOPES TO REMEDY SOME OF THE MACERATION. RECOMMEND DAILY DRESSING CHANGES TO THE THUMB WOUND LOTION TO HAND EDUCATED PATIENT ON FINDINGS AND NEW DRESSING FOR THUMB, COMMUNICATED UNDERSTANDING. EDUCATED PATIENT ON BEING CAREFUL WITH THE HEALED LACERATION BECAUSE THE SKIN WOULD BE VERY FRAGILE. COMMUNICATED UNDERTANDING.
--- NOTE | 2018-01-08 15:15 | NUR ---
NATASHA and Dr Jacobsen met with pt to review team conference summary. Plan for pt to dc home with family assist, HH services to follow, and RW with platform on Wednesday 01/10. Pt okay with plan. NATASHA called and spoke with pt dtr Nita about dc plan and for pt dtr to come in to watch pt with therapies and therapy to discuss in more detail about supervision, set up, any suggestions or precautions. Pt dtr scheduled to arrive at 1:00 pm on Saturday and then will provide pt ride home. SW to continue to follow.
--- NOTE | 2018-01-08 17:52 | NUR ---
ASSUMED CARE AT 0730 PATIENT ALERT/ORIENTED, TYLENOL GIVEN X1 THIS SHIFT FOR RIGHT LEG/LEFT ARM PAIN WITH GOOD RELIEF. PARTICIPATED IN ALL THERAPIES, UP WITH ONE AND WALKER/GAIT BELT. TO DINING ROOM FOR MEALS. BED/CHAIR ALARMS IN PLACE CALL LIGHT IN REACH. HOURLY ROUNDING COMPLETED. TO BE DISCHARGED TO HOME ON Saturday01/10/18
[2018-01-08 19:30] VITALS: BP 115/42
--- NOTE | 2018-01-09 01:04 | NUR ---
ASSUMED CARE @ 1924-01/08-SAT.SITS IN RECLINER W/ LE'S & LEFT HAND UP ON A PILLOW.SPLINT IN PLACE LEFT WRIST.IMMOBILIZER IN PLACE RIGHT KNEE.CHAIR ALARM PUT ON @ 1914.PRN GUIAFENESIN ONE TAB ORAL GIVEN @ 2013-PER PT'S REQUEST.WEARS PULL UPS.LATISHA GRACE OBSERVED.BAND AID INTACT LEFT THUMB.DRSG REMOVED BY WOUND NURSE EARLIER OUTER LEFT HAND-KATIE.EDEMA-LEFT FINGERS.HOB UP.EACH LE ELEVATED ON A PILLOW IN BED.WANTS ALL LIGHTS OFF & DOOR CLOSED @ NIGHT.BED ALARM PUT ON @ 2219.ON HOURLY ROUNDS.CORRUGATED FASTENER DRIVER DOING ODD HOUR ROUNDS.
[2018-01-09 05:05] VITALS: BP 115/42
[2018-01-09] MEDS ORDERED: FLOMAX0.4 MG PO (05:15)
[2018-01-09] MEDS ORDERED: TYLENOL325 MG PO (05:18)
--- NOTE | 2018-01-09 05:38 | NUR ---
SLEPT LATE @ 0200-01/09-.BRP X5 W/ ASSIST.INC BOWELS @ 0415 W/ BOWEL ACCIDENT X1.SEE POSITION CHANGE CHARTING BY LOW VOLTAGE ELECTRICIAN.REFUSED HS SNACK.FOR DISCHARGE TOMORROW-01/10-SATURDAY.
[2018-01-09 07:48] VITALS: BP 142/61
--- NOTE | 2018-01-09 18:06 | NUR ---
ASSUMED CARE AT 0730 PATIENT ALERT/ORIENTED, NO COMPLAINTS OF PAIN THIS SHIFT, UP WITH ASSIST OF ONE WITH WALKER/GAIT BELT, PARTICIPATED IN ALL THERAPIES TODAY, TO DINING ROOM FOR MEALS, BED/CHAIR ALARMS IN PLACE, CALL LIGHT IN REACH, HOURLY ROUNDING COMPLETED. TO BE DISCHARGED TOMORROW TO HOME
[2018-01-09 19:30] VITALS: BP 135/48
--- NOTE | 2018-01-10 00:19 | NUR ---
ASSUMED CARE @ 1914-01/09-.SITS IN RECLINER W/ LE'S UP & LEFT HAND UP ON A PILLOW.SON VISITING @ THIS TIME.SPLINT IN PLACE LEFT WRIST.IMMOBILIZER IN PLACE RIGHT LE.PRN GUIAFENESSIN ONE TAB ORAL GIVEN @ 2024-PER PT'S REQUEST. WEARS PULL UPS.LATISHA GRACE OBSERVED.SEE POSITION CHANGE CHARTING.ON HOURLY ROUNDS. MECHANICAL INSULATOR DOING ODD HOUR ROUNDS.EDEMA-LEFT FINGERS.
[2018-01-10 00:53] VITALS: BP 115/42
--- NOTE | 2018-01-10 05:11 | NUR ---
SLEPT LATE @ 0000-01/10-SAT.REFUSED HS SNACK.BRP W/ SBA X3.SEE POSITION CHANGE CHARTING.EACH LE ELEVATED ON A PILLOW WHILE IN BED.FOR DISCHARGE TODAY-01/10- -SAT AFTER LUNCH.
[2018-01-10 08:25] VITALS: BP 137/55
[2018-01-10 09:39] VITALS: BP 115/42
[2018-01-10 09:41] VITALS: BP 115/42
--- NOTE | 2018-01-10 09:58 | NUR ---
Pt to dc home today with dtr support and [facility] services; SW faxed final orders and med list to [facility]. Pt received rolling walker with platform. Pt dtr to arrive at 1 pm to complete family training and will provide pt ride home. No other dc needs expressed.
[2018-01-10 13:54] VITALS: BP 115/42
--- NOTE | 2018-01-10 14:14 | NUR ---
ASSUMED CARE AT 0730. ALERT ORIENTED PLEASANT COOPERATIVE. HX OF MULTIPLE FXS NWBLUE WEARS SPLINT TO LEFT WRIST AND USES PLATFORM WALKER TO AMBULATE TO BR AND IS ABLE TO DO CLOTHING ADJUSTMENTS AND HYGEINE. WEARS RT. KNEE IMMOBILIZER FOR PATELLAR FX WBATRTLE. DENIES NEED FOR PRN PAIN MED. PARTICIPATING IN THERAPIES. USES CALL LIGHT APPROPRIATELY FOR ASSIST. FEEDS SELF TAKES MEDS WITHOUT DIFFICULTY. WEARS PULLUPS. D/C INSTRUCTIONS GIVEN AND PT. AND DAUGHTER VERBALIZED UNDERSTANDING OF THEM ALLOWED TIME FOR QUESTIONS. SCRIPT GIVEN. DISCHARGED AT 1354 WITH ALL BELONGINGS AND INSTRUCTIONS WITH DAUGHTER PER W/C TO HOME.
--- NOTE | 2018-01-13 12:16 | PLAN ---
[address] [address] REHAB UNIT PLAN OF CARE Name: HUBERT MORENO Room: [address] IN [facility]#: [id number] Admission: 12/18/17 Attend Phys: Michaelle Jacobsen, Discharge: 01/10/18 Date of : 34 Report #: [id number] THIS REPORT FOR: //name// CC: Mary Jacobsen This is an 87-year-old female admitted to inpatient rehabilitation to facilitate safe discharge home, status post syncopal episode with a fall from standing height. She did hit her head. She has a facial laceration as well as a hematoma. She also has a left wrist fracture, is nonweightbearing on left upper extremity and a right patellar fracture with weightbearing as tolerated on the right lower extremity. CT did show 2 cerebrovascular accidents, age indeterminate at this time. MEDICAL PROGNOSIS: Good. REHABILITATION PROGNOSIS: Good. Estimated length of stay is 14-16 days with discharge disposition to the home setting. She does have supportive family and an accessible house. Previous level of function was independent with activities of daily living. Current level of function is minimum to moderate assistance of 1-2 depending on therapy, activity and time of day. Physical therapy will see the patient 60-90 minutes per day, 5 days per week on upper and lower body strength, balance, coordination, navigation. Occupational therapy will work with the patient 60-90 minutes per day, 5 days per week, working on upper and lower body strength, balance, coordination, navigation, bathing, dressing, and toileting. Speech language pathology will work with the patient 30-90 minutes per day, 5 days per week, working on memory strategies, social interaction, expression and comprehension 30-90 minutes per day, 5 days per week. This is an overall plan of care, may change from time to time, we will team weekly and make changes to plan of care as needed. <ELECTRONICALLY SIGNED> By: Michaelle Jacobsen DO 01/13/18 1216 1446 [id number] Jacobsen DO /nt
--- NOTE | 2018-01-13 12:16 | H ---
[address] [address] HISTORY AND PHYSICAL Name: HUBERT MORENO Room: [address] IN [facility]#: [id number] Admission: 12/18/17 Attend Phys: Michaelle Jacobsen DO Discharge: 01/10/18 Date of : 34 Report #: [id number] THIS REPORT FOR: //name// CC: Mary Jacobsen DATE OF SERVICE: 12/18/2017 HISTORY OF PRESENT ILLNESS: This is an 87-year-old female who is status post fall from standing height due to a syncopal episode. She sustained a left wrist fracture, right patellar fracture. She also did hit her head. She has a hematoma. Brain scan did show 2 old strokes of age indeterminant. She has no weightbearing restrictions at this time. There are no significant changes since the preadmission screening. Previous level of function was independent with activities of daily living. Current level of function is minimum to moderate assistance of 1-2 depending on therapy, activity and time of day. She does have mild impairment of comprehension, expression, social interaction, problem solving and memory. She is utilizing a front-wheeled walker with a left platform. She is nonweightbearing on the left upper extremity and is utilizing a front-wheeled walker with a platform. Estimated length of stay 14-16 days with discharge disposition to the home setting. PAST MEDICAL HISTORY: Hypertension, hyperlipidemia, GERD, anemia, vitamin D deficiency, macular degeneration, UTI, urinary retention. PAST SURGICAL HISTORY: Hysterectomy, tonsillectomy, breast biopsy, cataract surgery and sinus surgery. ALLERGIES: No known drug allergies. MEDICATIONS: Reviewed and reconciled by myself and are available in the MAR. SOCIAL HISTORY: No tobacco, alcohol or illicit drug use. FAMILY HISTORY: Heart disease. REVIEW OF SYSTEMS: A 14-point review of systems is done and is negative except as mentioned in the HPI including no chest pain, shortness of breath, abdominal pain or distention. PHYSICAL EXAMINATION: GENERAL: Alert, oriented, in no apparent distress. VITAL SIGNS: Reviewed and are stable. HEENT: Atraumatic, normocephalic. Pupils equal, round, reactive. ABDOMEN: Soft, nontender, nondistended. NEUROLOGIC: Cranial nerves 2-12 are grossly intact [place] [address] HISTORY AND PHYSICAL Name: HUBERT MORENO Room: [address]#: [id number] Admission: 12/18/17 Attend Phys: Michaelle Jacobsen DO Discharge: 01/10/18 Date of : 34 Report #: [id number] deficits. SKIN: Warm and dry. There is a facial laceration on the left side. There is also a hematoma noted. ASSESSMENT: 1. Mild brain concussion with left wrist fracture and a right patellar fracture. 2. Previous history of stroke, unknown age. PLAN: 1. Admission to inpatient rehabilitation. 2. PT, OT, speech, language, case management, nursing and HIMS to make evaluations and recommendations. 3. Plan of care is pending. 4. We will team her weekly. 5. Nonweightbearing on the left upper extremity with utilization of a front-wheeled walker. <ELECTRONICALLY SIGNED> By: Michaelle Jacobsen DO 01/13/18 1216 1443 [id number] Jacobsen DO /nt
[2018-05-02] MEDS ORDERED: HYDROCHLOROTH12.5 M1 PO (11:00)
== END 2018-01-10 13:54 | disposition home health service (06) | DRG 563 ==
LOC: M.REH 15:08
PROVIDERS: Internal Medicine; ADMIT Physical Medicine & Rehabilitation
DX: S62.002A Unspecified fracture of navicular [scaphoid] bone of left wrist, initial encounter for closed fracture (principal); S82.001A Unspecified fracture of right patella, initial encounter for closed fracture; S06.0X9A Concussion with loss of consciousness of unspecified duration, initial encounter; S01.81XA Laceration without foreign body of other part of head, initial encounter; I10 Essential (primary) hypertension; E78.5 Hyperlipidemia, unspecified; K21.9 Gastro-esophageal reflux disease without esophagitis; E78.00 Pure hypercholesterolemia, unspecified; D64.9 Anemia, unspecified; W18.39XA Other fall on same level, initial encounter; E55.9 Vitamin D deficiency, unspecified; R55 Syncope and collapse; R33.9 Retention of urine, unspecified; R53.81 Other malaise; J30.9 Allergic rhinitis, unspecified; J01.90 Acute sinusitis, unspecified; B97.89 Other viral agents as the cause of diseases classified elsewhere; Z87.440 Personal history of urinary (tract) infections; Z90.710 Acquired absence of both cervix and uterus; Z98.49 Cataract extraction status, unspecified eye; Z87.11 Personal history of peptic ulcer disease; Y93.89 Activity, other specified; Y92.89 Other specified places as the place of occurrence of the external cause; Y99.8 Other external cause status; Z82.49 Family history of ischemic heart disease and other diseases of the circulatory system; Z79.899 Other long term (current) drug therapy; Z79.82 Long term (current) use of aspirin

== ENCOUNTER → 2018-05-09 | Day surgery (SDC) | payer MEDICARE, OTHER ==
[~2018-05-09] MED LIST: ASPIRIN81 M2 PO; CALCIUM 600 +1 EAC1 PO; FLOMAX0.4 MG PO; HYDROCHLOROTH12.5 M1 PO; HYDROCODONE-AP1 EAC6 PO; LACTULOSE20 GM/30 M PO; LIPITOR10 MG PO; MIRALAX17 GM PO; PROTONIX40 M1 PO; TYLENOL325 MG PO; VITAMIN D1000 UNI1 PO
--- NOTE | ~2018-05-09 | PROC ---
[address] [address] PROCEDURE REPORT Name: HUBERT MORENO Room: [facility].#: [id number] Admission: 05/09/18 Attend Phys: Jean Carlos Riddle MD Discharge: Date of : 34 Report #: [id number] THIS REPORT FOR: //name// For GI report, please see the Provation report in Perceptive 7 content. By: 0704Medical Records Staff JAYME /ANA
[2018-05-09 09:38] LABS: ABSOLUTE EOSINOPHILS 0.1 thou/uL (0.0-0.7); ABSOLUTE LYMPHOCYTES 0.9 thou/uL (0.8-5.3); ABSOLUTE MONOCYTES 0.4 thou/uL (0.0-1.2); ABSOLUTE NEUTROPHILS 2.9 thou/uL (1.6-8.1); EOSINOPHILS 2.6 %; HEMATOCRIT 31.1 % (37.0-47.0); HEMOGLOBIN 10.1 gm/dL (12.0-15.0); LYMPHOCYTES 21.3 %; MCH 28.4 pg (26.0-34.0); MCHC 32.4 g/dL (28.0-37.0); MCV 87.4 fL (80.0-100.0); MPV 7.4 fl. (7.2-11.1); NUCLEATED RBCS 0 /100WBC; PLATELET COUNT* 230 thou/uL (150-400); POLYS 65.1 %; RBC 3.56 mil/uL (4.20-5.00); RDW-CV 15.7 % (10.5-14.5); WBC 4.4 thou/uL (4.0-11.0)
[2018-05-09 09:40] LABS: CREATININE 0.8 mg/dL (0.6-1.3); POTASSIUM 3.5 mmol/L (3.5-5.1)
[2018-05-09 09:44] LABS: ALBUMIN 3.9 g/dL (3.4-5.0); TOTAL BILIRUBIN 0.4 mg/dL (<0.1-1.0)
--- NOTE | 2018-05-09 14:09 | EKG ---
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
--- NOTE | 2018-05-14 15:07 | PATH ---
[facility] [address] [place] [address] PATHOLOGY RPT PROCEDURE Name: HUBERT HERNANDEZ [facility] [id number] Admission: 05/09/18 Date of : 34 Discharge: Report #: [id number] Path Case #: [id number] [facility] Accession Number: [id number] . 01 Material submitted: . PART A: ANTRAL BIOPSY TO R/O GAVE PART B: DISTAL ESOPHAGUS TO R/O DYSPLASIA . 01 Clinical history: . Gudino's esophagus . 02 Diagnosis: A. 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 See comment. . B. Distal esophagus: - Scant benign esophageal mucosa and predominantly benign gastric/columnar type mucosa with moderate chronic inflammation compatible with reflux and with focal specialized glandular mucosa including goblet cells compatible with Gudino's metaplasia, negative for granulomas and dysplasia. (PHOENIX:rashid; 05/12/2018) QMS/05/12/2018 . 02 Comment: No significant vascular ectasia is seen in the antral biopsy (A). . . Special stain on A: H. pylori immuno . 02 Electronically signed: . Jameel Mcbride MD, Pathologist NPI- [id number] . 01 Gross description: . A. Received in formalin labeled "Hubert Hernandez, antral biopsy," are 2 segments of bran soft tissue measuring 0.7 x 0.3 x 0.2 cm in aggregate dimensions and ranging from 0.3 to 0.4 cm in maximum dimension. The specimen is submitted entirely in cassette A1. . B. Received in formalin labeled "Hubert Hernandez, distal esophagus, rule out dysplasia," are 2 segments of bran soft tissue measuring 0.9 x 0.3 x 0.3 cm in aggregate dimensions and ranging from 0.4 to 0.5 cm in maximum dimension. The specimen is submitted entirely in cassette B1. (TSD; 05/09/2018) TOB/[place] [address] PATHOLOGY RPT PROCEDURE Name: HUBERT HERNANDEZ [facility] [id number] Admission: 05/09/18 Date of : 34 Discharge: Report #: [id number] Path Case #: [id number] . 02 Pathologist provided ICD-10: K29.50, K20.9, K22.70 . 02 CPT . 344848, 990060, Z45001 Specimen Comment: A courtesy copy of this report has been sent to Specimen Comment: [phone], . Specimen Comment: Report sent to / DR MULLINS Specimen Comment: A duplicate report has been generated due to demographic updates. Performed at: [address], [place], [place] [id number] MD Jose Wiley MD Phone: [phone] Performed at: 02 [facility] [address], [place], [place] [id number] MD Jameel Mcbride MD Phone: [phone]
== END | disposition home or self-care (01) ==
LOC: M.SUR 08:04
PROVIDERS: Internal Medicine Gastroenterology
DX: K29.50 Unspecified chronic gastritis without bleeding (principal); K31.819 Angiodysplasia of stomach and duodenum without bleeding; K21.0 Gastro-esophageal reflux disease with esophagitis; K22.70 Barrett's esophagus without dysplasia; K44.9 Diaphragmatic hernia without obstruction or gangrene; D64.9 Anemia, unspecified; I10 Essential (primary) hypertension; E78.5 Hyperlipidemia, unspecified; Z79.899 Other long term (current) drug therapy; Z98.890 Other specified postprocedural states; Z79.82 Long term (current) use of aspirin